=== PATIENT | male | born 1935 | race Caucasian/White ===

== ENCOUNTER 2020-03-16 21:33 | Emergency (ER) | payer MEDICARE, BC ==
--- NOTE | 2020-03-16 21:54 | EDM.PDOC ---
ED HPI GENERAL MEDICAL PROBLEM - General Chief Complaint: Cardiovascular Problem Stated Complaint: SOB Time Seen by Provider: 03/16/20 21:43 Source of Information: Reports: Patient History Limitations: Reports: Respiratory Distress - History of Present Illness INITIAL COMMENTS - FREE TEXT/NARRATIVE: Patient comes to ER via EMS due to worsening SOB secondary to Covid. Was recen tly inpatient at [facility] for treatment of Covid-19. Sent home with home oxygen. Suddenly increasing SOB this evening while patient performing home dialysis. Patient does not recall other acute changes since discharge, just ongoing SOB and fatigue. Denies any specific fever/GI complaints/new pain. Initially seen in this facility Mar 06 with + Covid test at that time. - Related Data Allergies Allergy/AdvReac Type Severity Reaction Status Date / Time No Known Drug Allergies Allergy Cannot Verified 03/16/20 22:18 Remember Home Meds: Home Meds Acetaminophen [Tylenol Extra Strength] 1,000 mg PO Q6H PRN 08/01/19 [History] Albuterol [Proventil Neb Soln] 1 ampule INH QID PRN 08/01/19 [History] Calcium Acetate [PhosLo] 667 mg PO TIDMEALS 08/01/19 [History] Doxycycline [Doxycycline Hyclate] 100 mg PO BID 08/01/19 [History] Ferrous Sulfate [Feosol] 325 mg PO DAILY 08/01/19 [History] Finasteride [Proscar] 5 mg PO DAILY 08/01/19 [History] Furosemide [Lasix] 80 mg PO DAILY 08/01/19 [History] Gentamicin [Gentamicin 0.1%] 1 gm TOP BEDTIME 08/01/19 [History] Insulin Glargine,Hum.Rec.Anlog [Basaglar Kwikpen U-100] 20 unit SQ DAILY 08/01/19 [History] Insulin Glargine,Hum.Rec.Anlog [Basaglar Kwikpen U-100] 30 unit SQ BEDTIME 08/01/19 [History] L.acidoph,Paracasei, B.lactis [Probiotic] 1 each PO DAILY 08/01/19 [History] Loratadine [Claritin] 10 mg PO BEDTIME 08/01/19 [History] Metoprolol Succinate [Toprol Xl] 100 mg PO DAILY 08/01/19 [History] amLODIPine [Norvasc] 5 mg PO BID 08/01/19 [History] calcitrioL [Rocaltrol] 0.25 mcg PO DAILY 08/01/19 [History] glipiZIDE [Glucotrol] 10 mg PO BID 08/01/19 [History] hydrALAZINE [Apresoline] 50 mg PO DAILY 08/01/19 [History] lisinopriL [Zestril] 20 mg PO DAILY 08/01/19 [History] Past Medical History HEENT History: Reports: Allergic Rhinitis, Cataract, Hard of Hearing, Impaired Vision Cardiovascular History: Reports: CAD, High Cholesterol, Hypertension, PVD Respiratory History: Reports: Bronchitis, Recurrent, COPD, Pneumonia, Recurrent, Other (See Below) (chronic right pleural effusion) Gastrointestinal History: Reports: Chronic Constipation, Colon Polyp, Gastritis, Hepatitis, Irritable Bowel Syndrome, Jaundice, PUD, Other (See Below) (hx colon resection) Genitourinary History: Reports: BPH, Dialysis Musculoskeletal History: Reports: Amputation (right first toe), Arthritis, Back Pain, Chronic, Neck Pain, Chronic, Osteoarthritis Neurological History: Reports: Neuropathy, Diabetic Psychiatric History: Reports: None Endocrine/Metabolic History: Reports: IDDM, Obesity/BMI 30+ Hematologic History: Reports: Anemia, Idiopathic Thrombocytopenia Oncologic (Cancer) History: Reports: Colon Social & Family History - Caffeine Use Caffeine Use: Reports: None ED ROS GENERAL - Review of Systems Review Of Systems: See Below Constitutional: Reports: Weakness, Fatigue. Denies: Fever, Chills, Night Swea ts, Diaphoresis HEENT: Reports: Other (no acute changes) Respiratory: Reports: Shortness of Breath, Cough. Denies: Pleuritic Chest Pain, Hemoptysis Cardiovascular: Reports: Dyspnea on Exertion. Denies: Chest Pain, Lightheadedness, Palpitations, Syncope GI/Abdominal: Reports: No Symptoms : Reports: No Symptoms Musculoskeletal: Reports: Other (no acute changes from baseline) Skin: Reports: Bruising (recent IVs/SQ shots/blood work) Neurological: Reports: Weakness (global). Denies: Confusion, Headache, Change in Speech Psychiatric: Reports: No Symptoms ED EXAM, GENERAL - Physical Exam Exam: See Below Exam Limited By: Respiratory Distress General Appearance: Alert, Mild Distress, Other (On NRB mask at 15L. Alert/answering questions) Eye Exam: Bilateral Eye: EOMI, PERRL Ears: Hearing Grossly Normal Nose: No: Nasal Deformity, Nasal Swelling, Nasal Drainage Throat/Mouth: Normal Voice Head: Atraumatic, Normocephalic Neck: Supple Respiratory/Chest: Accessory Muscle Use (mild), Other (decreased breath sounds throughout. No obvious wheezes/rales/rhonchi but significant background noise limited ascultation. ). No: Retractions Cardiovascular: Regular Rate, Rhythm GI/Abdominal: Soft, Non-Tender, Other (Home dialysis catheter present) (Male) Exam: Deferred Rectal (Males) Exam: Deferred Back Exam: No: CVA Tenderness (L), CVA Tenderness (R) Extremities: Normal Capillary Refill Neurological: Alert, Oriented, Normal Cognition Psychiatric: Normal Affect, Normal Mood Skin Exam: Warm, Dry, Normal Color #1 Interpretation EKG Date: 03/16/20 Time: 21:45 Rate (Beats/Min): 90 EKG Interpretation Comments: Previous EKG from Mar 06 shows sinus rhythm. Today's EKG shows new bundle branch block/difficult to identify p-waves/may reflect Afib Course - Vital Signs Last Recorded V/S: Last Vital Signs Temp 36.3 C 03/16/20 22:33 Pulse 89 03/16/20 22:33 Resp 28 H 03/16/20 22:33 BP 124/59 L 03/16/20 22:33 Pulse Ox 88 L 03/16/20 22:33 - Orders/Labs/Meds Orders: Active Orders 24 hr Category Date Time Status EKG Documentation Completion [RC] ASDIRECTED Care 03/16/20 21:36 Active Chest 1V Frontal [CR] Stat Exams 03/16/20 21:35 Ordered UA W/MICROSCOPIC [URIN] Stat Lab 03/16/20 21:37 Ordered Azithromycin [Zithromax] 500 mg Med 03/16/20 22:35 Ordered Sodium Chloride 0.9% [Normal Saline] 250 ml IV ONETIME Sodium Chloride 0.9% [Saline Flush] Med 03/16/20 22:12 Active 10 ml FLUSH ASDIRECTED PRN Saline Lock Insert [OM.PC] Routine Oth 03/16/20 22:12 Ordered Medication Orders Azithromycin 500 mg/ Sodium (Chloride) 250 mls @ 250 mls/hr IV ONETIME ONE Stop: 03/16/20 23:34 Last Admin: 03/16/20 22:46 Dose: 250 mls/hr Documented by: BEKA Sodium Chloride (Saline Flush) 10 ml FLUSH ASDIRECTED PRN PRN Reason: Keep Vein Open Last Admin: 03/16/20 22:48 Dose: 10 ml Documented by: Admin: 03/16/20 22:13 Dose: 10 ml Documented by: BEKA Labs: Laboratory Tests 03/16/20 03/16/20 03/16/20 Range/Units 22:06 22:06 22:06 WBC 19.5 H (4.0-10.2) K/uL RBC 3.18 L (4.33-5.41) M/uL Hgb 9.1 L (13.1-16.8) g/dL Hct 26.1 L (39.0-49.0) % MCV 82.1 L (84.0-98.0) fL MCH 28.6 (28.2-33.3) pg MCHC 34.9 (31.7-36.0) g/dL RDW 15.2 H (11.2-14.1) % Plt Count 189 (150-350) K/uL Neut % (Auto) 93.9 H (45.0-80.0) % Lymph % (Auto) 2.1 L (10.0-50.0) % [place] % (Auto) 3.8 (2.0-14.0) % Eos % (Auto) 0.0 (0.0-5.0) % Baso % (Auto) 0.2 (0.0-2.0) % Neut # (Auto) 18.27 H (1.40-7.00) K/uL Lymph # (Auto) 0.41 L (0.50-3.50) K/uL [place] # (Auto) 0.73 (0.00-1.00) K/uL Eos # (Auto) 0.00 (0.00-0.50) K/uL Baso # (Auto) 0.04 (0.00-0.20) K/uL D-Dimer, Quantitative 4130 H (0-400) ng/mL Sodium 128 L (136-145) mmol/L Potassium 5.1 (3.5-5.1) mmol/L Chloride 92 L (98-107) mmol/L Carbon Dioxide 22.3 (21.0-32.0) mmol/L BUN 122 H* (7-18) mg/dL Creatinine 4.88 H* (0.51-1.17) mg/dL Est Cr Clr Drug Dosing 12.96 mL/min Estimated GFR (MDRD) 11 mL/min Glucose 466 H* (74-106) mg/dL Calcium 6.9 L (8.5-10.1) mg/dL Magnesium 2.3 (1.8-2.4) mg/dL Total Bilirubin 0.6 (0.2-1.0) mg/dL AST 26 (15-37) U/L ALT 45 (12-78) U/L Alkaline Phosphatase 95 (46-116) IU/L Troponin I 0.005 (0.000-0.056) ng/mL NT-Pro-B Natriuret Pep 2802 H (0-125) pg/mL Total Protein 6.2 L (6.4-8.2) g/dL Albumin 1.9 L (3.4-5.0) g/dL Meds: Medications Generic Name Dose Route Start Last Admin Trade Name Freq PRN Reason Stop Dose Admin Azithromycin 500 mg/ Sodium 250 mls @ 250 mls/hr 03/16/20 22:35 03/16/20 22:46 Chloride IV 03/16/20 23:34 250 mls/hr ONETIME ONE Administration Sodium Chloride 10 ml 03/16/20 22:12 03/16/20 22:48 Saline Flush FLUSH 10 ml ASDIRECTED PRN Administration Keep Vein Open Discontinued Medications Generic Name Dose Route Start Last Admin Trade Name Freq PRN Reason Stop Dose Admin Ceftriaxone Sodium 1 gm 03/16/20 22:35 03/16/20 23:00 Rocephin IVPUSH 03/16/20 22:36 1 gm ONETIME ONE Administration Dexamethasone 6 mg 03/16/20 22:32 03/16/20 22:46 Decadron IVPUSH 03/16/20 22:33 6 mg ONETIME ONE Administration Heparin Sodium (Porcine) 5,000 units 03/16/20 22:33 03/16/20 22:46 Heparin Sodium SUBCUT 03/16/20 22:34 5,000 units ONETIME ONE Administration - Radiology Interpretation Free Text/Narrative:: Worsening lower infiltrates noted bilateral lungs when compared to previous xray from Mar 06. - Re-Assessments/Exams Free Text/Narrative Re-Assessment/Exam: 03/16/20 22:35 WBC 19.5/left shift Hgb 9.1 Diffuse patchy infiltrates bilaterally on chest xray consistent with Covid-19 pattern. O2 sats improved to 88% Discussed patient with at [facility]. Patient accepted for transfer. Advised to give Decadron, Heparin, Rocephin, and Zithromax prior to transfer. Pending bed assignment at this time. 23:13 Patient remains stable. Na 128 Elevated BUN/Cr Glucose 466 ProBNP 2802 Ca and albumin low DDimer 4130 Troponin within normal limits. Insulin ordered/single dose. Departure - Departure Time of Disposition: 23:23 Disposition: DC/Tfer to [facility] Reason for Transfer *Q: Other Condition: Serious Clinical Impression: COVID-19, Respiratory difficulty, Hyponatremia Forms: ED Department Discharge Sepsis Event Note (ED) - Focused Exam Vital Signs: Vital Signs Temp Pulse Resp BP Pulse Ox 03/16/20 22:33 36.3 C 89 28 H 124/59 L 88 L 03/16/20 22:05 36.2 C 90 28 H 131/68 86 L - My Orders Last 24 Hours: My Active Orders 03/16/20 21:35 Chest 1V Frontal [CR] Stat 03/16/20 21:36 EKG Documentation Completion [RC] ASDIRECTED 03/16/20 21:37 UA W/MICROSCOPIC [URIN] Stat 03/16/20 22:12 Sodium Chloride 0.9% [Saline Flush] 10 ml FLUSH ASDIRECTED PRN Saline Lock Insert [OM.PC] Routine 03/16/20 22:35 Azithromycin [Zithromax] 500 mg Sodium Chloride 0.9% [Normal Saline] 250 ml IV ONETIME - Assessment/Plan Last 24 Hours: My Active Orders 03/16/20 21:35 Chest 1V Frontal [CR] Stat 03/16/20 21:36 EKG Documentation Completion [RC] ASDIRECTED 03/16/20 21:37 UA W/MICROSCOPIC [URIN] Stat 03/16/20 22:12 Sodium Chloride 0.9% [Saline Flush] 10 ml FLUSH ASDIRECTED PRN Saline Lock Insert [OM.PC] Routine 03/16/20 22:35 Azithromycin [Zithromax] 500 mg Sodium Chloride 0.9% [Normal Saline] 250 ml IV ONETIME
[2020-03-16] MEDS: Sodium Chloride 0.9% 10 ML Syringe FLUSH PRN ×2 (22:13→22:48)
[2020-03-16] MEDS ORDERED: Dexamethasone 10 MG/ML SDV IVPUSH ONE (22:32)
[2020-03-16] MEDS ORDERED: Heparin Sodium 5,000 Units/ML Vial SUBCUT ONE (22:33)
[2020-03-16] MEDS ORDERED: Azithromycin 500 MG in Sodium Chloride 0.9% 250 ML IV ONE (22:35)
[2020-03-16] MEDS ORDERED: cefTRIAXone 2 GM Vial IVPUSH ONE (22:35)
[2020-03-16] MEDS ORDERED: 50% Dextrose in Water 50 ML Syringe IV PRN ×3 (23:14→23:46)
[2020-03-16] MEDS ORDERED: Insulin Regular, Human 100 Units/ML 3 ML Vial IV ONE (23:14)
[2020-03-16] MEDS ORDERED: Glucagon,Human Recombinant 1 MG Vial IM PRN ×3 (23:14→23:46)
[2020-03-16] MEDS ORDERED: Sodium Chloride 0.9% 100 ML IV SCH (23:15)
[2020-03-16] MEDS ORDERED: Insulin Regular, Human 100 Units/ML 3 ML Vial IM ONE (23:36)
[2020-03-17] MEDS ORDERED: Insulin Regular, Human 100 Units/ML 3 ML Vial SUBCUT ONE (23:46)
== END 2020-03-17 00:05 ==
LOC: LL.ED 21:33
DX: U07.1 COVID-19 (principal); E87.1 Hypo-osmolality and hyponatremia; I25.10 Atherosclerotic heart disease of native coronary artery without angina pectoris; I10 Essential (primary) hypertension; J44.9 Chronic obstructive pulmonary disease, unspecified; E11.40 Type 2 diabetes mellitus with diabetic neuropathy, unspecified; E11.51 Type 2 diabetes mellitus with diabetic peripheral angiopathy without gangrene; N40.0 Benign prostatic hyperplasia without lower urinary tract symptoms; E66.9 Obesity, unspecified; Z68.28 Body mass index [BMI] 28.0-28.9, adult; Z79.4 Long term (current) use of insulin; Z79.899 Other long term (current) drug therapy
CPT/HCPCS: 36415; 71045; 80053; 81001; 83735; 83880; 84484; 85025; 85379; 93005; 96365; 96372; 96375; 99285-25; J0456; J0696; J1100; J1644; J1815-GY; J7050